=== PATIENT | female | born 1980 | race American Indian/Alaskan Native ===

== ENCOUNTER 2017-12-16 08:11 | Outpatient (CLI) | payer OTHER ==
--- NOTE | 2017-12-16 11:56 | Fluoroscopy Report ---
UPPER GI AIR CONTRAST: History: Gastroesophageal reflux disease without esophagitis FINDINGS: No comparison at this facility. 62 fluoroscopic images were captured during this exam. Pot Pusher film of the abdomen demonstrates a lap band in the left upper quadrant with a normal phi angle measuring 45 degrees. Deglutition is normal. No evidence for aspiration. The esophagus is normal caliber and mucosal pattern throughout. There is relatively easy passage of the contrast agent through the lap band device. The small gastric pouch appears normal size and contour measuring approximately 4 cm in diameter. There is no evidence for slippage or erosion. The gastric cavity and duodenal bulb are within normal limits. No evidence for mass or ulceration. IMPRESSION: Essentially unremarkable exam. No abnormality of the lap band device is appreciated.
== END 2017-12-16 08:12 | disposition home or self-care (01) ==
LOC: FLUORO 08:11
PROVIDERS: ATTEND Specialist
DX: K21.9 Gastro-esophageal reflux disease without esophagitis (principal)
CPT/HCPCS: 74247